=== PATIENT | female | born 1985 | race Caucasian/White ===

== ENCOUNTER 2016-09-03 19:15 | Inpatient (IN) | payer OTHER ==
[~2016-09-03] VITALS: Ht 147.3 cm; Wt 65.3 kg
[~2016-09-03 19:15] MED LIST: AMOXICILLIN500 M3 PO; PRENATAL GUMMI1 EACH PO; VITAMIN B-121000 MC3 PO
[2016-09-03 21:35] LABS: ABSOLUTE BASOPHIL COUNT 0 /CUMM (0.0-0.2); ABSOLUTE EOSINOPHIL COUNT 0 /CUMM (0.0-0.7); ABSOLUTE GRANULOCYTE CT 5.2 /CUMM (1.4-6.5); ABSOLUTE LYMPH COUNT 2.1 /CUMM (1.2-3.4); ABSOLUTE MONOCYTE COUNT 0.4 /CUMM (0.10-0.60); BASOPHIL % 0.3 % (0.0-2.0); EOSINOPHIL % 0 % (0-5); GRANULOCYTE % 67.8 % (42.2-75.2); HEMATOCRIT 30.1 % (37-47); MEAN CORPUSCULAR HGB 25.2 PG (27.0-31.0); MEAN CORPUSCULAR HGB CONC 32.5 G/DL (33.0-37.0); MEAN CORPUSCULAR VOLUME 77.5 FL (81.0-99.0); MEAN PLATELET VOLUME 7.6 FL (7.4-10.4); PLATELET COUNT 382 /CUMM (130-400); RED BLOOD CELL CT 3.88 /CUMM (4.20-5.40); WHITE BLOOD CELL COUNT 7.7 /CUMM (4.8-10.8)
--- NOTE | 2016-09-04 08:04 | History & Physical ---
General Information and HPI MD Statement: I have seen and personally examined SYMONE SANTO and documented this H&P. The patient is a 31 year old female at [] weeks and [] days gestation who presented with a chief complaint of []. Small infant . Patient will follow and documented in office for small for gestational age and over the last 2 weeks she's had no growth her biophysical profile is 8 out of 8 estimated weight offices 5 pounds patient has a positive cocaine urine tox that she does not want to discuss History of Present Illness: 31-year-old 2 para 0010 at 37 weeks gestation presents to the childbirth center for all monitoring. 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 Para: 1 Last Menstrual Period: 12/16/2015 Past media marketing specialist History: none Medical History Neurological: SYNCOPE EPISODES EENT: NONE Cardiovascular: NONE Respiratory: NONE Gastrointestinal: GERD Hepatic: NONE Renal: NONE Musculoskeletal: NONE Psychiatric: depression, IV drug abuse, BULIMIA Endocrine: hypothyroidism Blood Disorders: NONE Cancer(s): NONE 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 No Contractions: NONE #1 - FHR Baseline: 140 Category: 1 Estimated Weight: 2500 Presentation: VTX Patient for Induction? No Labs Blood Type & Rh: O+ Antibody Screen: NEG Hct/Hgb & Platelets #1: Hct/Hgb & Platelets #2: Rubella: IMMUNE VDRL #1: NR VDRL #2: NR HbsAg: NEG HIV #1: NEG HIV #2 NEG 1 Hr P Group B Strep: NEG Initial Ultrasound: NEG Anatomy Ultrasound: NL Genetic Testing: NEG Assessment/Plan As Ranked By This Provider Problem List: 1. Core Measures/Miscellaneous Venous Thromboembolism VTE Risk Factors: / VTE Contraindications: No Contraindications VTE Diagnosis: No Beta Dora Is Beta Dora a Home Med? No Antibiotics Is Patient on Antibiotics? No
--- NOTE | 2016-09-04 09:25 | Operative Report ---
Operative/Inv Procedure Report Surgery Date: 09/04/16 Name of Procedure: Flap transverse section via Pfannenstiel skin incision Pre-Operative Diagnosis: Severe IUGR substance abuse Post-Operative Diagnosis: Same Estimated Blood Loss: 500 Surgeon/Electrotyper Apprentice: Cary Alarcon and Dr. Wilman Correia M.D. Anesthesia: block Operative/Procedure Note Note: Procedure the patient was seen in the operating room placed prone position after adequate skin testing for spinal anesthesia and adequate timeout demonstrated dorsal fashion to prevent substance abuse in the midline skin was cut was carried out the rectus fascia which was cut in curvilinear fashion R direction peritoneal cavity was entered high into the abdomen at this point the rectus sheath was dissected bluntly as well as sharply on and the rectus sheath was cut all using curved Mayos in either direction peritoneal cavity was entered high into the abdomen bladder blade. HIS LOWER AND IN THE INCISION TO PROTECT THE BLADDER AND THE LOWER UTERINE SEGMENT WAS NICKED ENTERED TOBACCO KNIFE THE BLADDER FLAP WAS FELT BLUNTLY WELL SHARPLY AND THE BLADDER BLADE WAS REPLACED TO PROTECT THE BLADDER BLADE WAS DELIVERED OUT OF THE ABDOMINAL BREAST SPECIMEN FROM THE FIELD THE CORD WAS DOUBLY CLAMPED AND CUT AND WAS HANDED PEDIATRICIANS WINDOW RESUSCITATION SUBSEROSALLY MANUALLY NOTED TO BE INTACT WITH WHITE PLAINS WERE TRAVERSED INSURANCE HISTORY OF HER MEMBRANES INTRAVENOUS AND INTRAMYOMETRIAL PITOCIN USED IN UTERINE CONTRACTILITY WHICH WAS UTERUS WAS EVIDENT SO RUNNING LOCKING SUTURE WAS IMBRICATED INTERRUPTED FIGURE- OF-EIGHT HEMOSTASIS USES RETURNED TO ABDOMINAL CAVITY. BECAUSE METZENBAUM SALINE TO CLEAR 2 HEMOSTASIS WAS APPARENT PERITONEUM WAS REAPPROXIMATED 0/WAS REAPPROXIMATED TO CONTINUE SUTURE #1 SKIN WAS APPROXIMATED LUCERO AT THE END OF THE CASE WITH BOVIE COAGULATION SUBCUTANEOUS TISSUE WAS STERILE DRESSING WAS APPLIED COUNTS [id number] CLEAR MOM AND INFANT WERE TRANSFERRED TO RECOVERY ROOM AWAKE AND ALERT
[2016-09-04 09:42] VITALS: BP 106/78
--- NOTE | 2016-09-05 07:41 | PN- Post Delivery/GYN ---
Subjective Subjective: C/O GAS Objective Last 24 Hrs of Vital Signs/I&O Vital Signs Date Time Temp Pulse Resp B/P B/P Pulse O2 O2 Flow FiO2 Mean Ox Delivery Rate 09/04 0942 106/78 Physical Exam: PE PALE WF IN NAD ABD SOFT DISTENTION INCISION CDI EXT - EDEMA- DESTINI ALAMO IN Assessment/Plan Assessment/Plan ASSESS S/P C/S PLAN CONTDIET
[2016-09-05 09:23] LABS: ABSOLUTE BASOPHIL COUNT 0 /CUMM (0.0-0.2); ABSOLUTE EOSINOPHIL COUNT 0 /CUMM (0.0-0.7); ABSOLUTE LYMPH COUNT 2.9 /CUMM (1.2-3.4); ABSOLUTE MONOCYTE COUNT 0.7 /CUMM (0.10-0.60); BASOPHIL % 0.4 % (0.0-2.0); EOSINOPHIL % 0 % (0-5); GRANULOCYTE % 71.1 % (42.2-75.2); HEMATOCRIT 28.8 % (37-47); MEAN CORPUSCULAR HGB CONC 31.7 G/DL (33.0-37.0); MEAN PLATELET VOLUME 7.9 FL (7.4-10.4); PLATELET COUNT 343 /CUMM (130-400); RBC DISTRIBUTION WIDTH 16.5 % (11.5-14.5); RED BLOOD CELL CT 3.65 /CUMM (4.20-5.40)
[2016-09-05 09:47] LABS: WHITE BLOOD CELL COUNT 12.7 /CUMM (4.8-10.8)
--- NOTE | 2016-09-06 10:43 | PN- Post Delivery/GYN ---
Subjective Subjective: SLIGHT BACK PAIN Review of Systems: NEGATIVE Objective Last 24 Hrs of Vital Signs/I&O VSS Physical Exam: FF INCISION C/D/I EXT NT Assessment/Plan Assessment/Plan S/P C/S POD2 SUBSTANCE ABUSE AWAITING DCF TOMORROW PT IS OTHERWISE STABLE Problem List: 1.
[2016-09-06] MEDS ORDERED: DOCUSATE SODIU100 M3 PO (17:08)
[2016-09-06] MEDS ORDERED: IBUPROFEN800 M1 PO (17:08)
[2016-09-06] MEDS ORDERED: PERCOCET 5-3251 EACH PO (17:08)
== END 2016-09-07 13:00 | DRG 540 ==
LOC: CBCO 19:15 → GNO 20:38
PROVIDERS: ADMIT Specialist
PROC: 10D00Z1 Extraction of Products of Conception, Low, Open Approach (ICD-10-PCS; principal; 2016-09-04)
DX: O36.5930 Maternal care for other known or suspected poor fetal growth, third trimester, not applicable or unspecified (principal); Z3A.37 37 weeks gestation of pregnancy; Z37.0 Single live birth; O99.323 Drug use complicating pregnancy, third trimester; F14.90 Cocaine use, unspecified, uncomplicated; O99.344 Other mental disorders complicating childbirth; F50.2 Bulimia nervosa; O99.284 Endocrine, nutritional and metabolic diseases complicating childbirth; E03.9 Hypothyroidism, unspecified; O99.334 Smoking (tobacco) complicating childbirth; K62.2 Anal prolapse
CPT/HCPCS: GNOP; GNOS; 36415; 80307; 81003; 87086; 88307; J0131; J0690; J1200; J1885; J7120